=== PATIENT | male | born 1950 | race Caucasian/White ===

== ENCOUNTER 2016-07-17 06:46 | Outpatient (CLI) | payer MEDICARE, OTHER | END 2016-07-17 06:47 | disposition home or self-care (01) | DX: N35.8 Other urethral stricture (principal) ==

== ENCOUNTER 2019-01-08 08:22 | Outpatient (CLI) | payer MEDICARE, OTHER ==
[2019-01-08 12:32] LABS: BASOPHILS % (AUTO) 0.8 %; EOSINOPHILS # (AUTO) 0.1 10^3/uL (0.0-0.7); EOSINOPHILS % (AUTO) 1.7 %; HGB - HEMOGLOBIN 12.2 g/dL (14.0-18.0); LYMPHOCYTES # (AUTO) 0.9 10^3/uL (1.5-3.5); LYMPHOCYTES % (AUTO) 16.8 %; MEAN CORPUSCULAR HEMOGLOBIN 30.9 pg (27.0-31.0); MEAN CORPUSCULAR HGB CONC 33.7 g/dL (32.0-36.0); MEAN CORPUSCULAR VOLUME 91.6 fL (80.0-94.0); MEAN PLATELET VOLUME 10.8 fL (7.4-11.4); MONOCYTES # (AUTO) 0.4 10^3/uL (0.0-1.0); MONOCYTES % (AUTO) 6.7 %; NEUTROPHILS # (AUTO) 3.9 10^3/uL (1.5-6.6); NEUTROPHILS % (AUTO) 73.8 %; PLT - PLATELET COUNT 223 10^3/uL (130-450); RED BLOOD COUNT 3.95 10^6/uL (4.70-6.10); RED CELL DISTRIBUTION WIDTH 12.9 % (12.0-15.0); WHITE BLOOD COUNT 5.2 x10^3/uL (4.8-10.8)
[2019-01-08 12:42] LABS: ALBUMIN 4.3 g/dL (3.2-5.5); ALBUMIN/GLOBULIN RATIO 1.5 (1.0-2.2); BILIRUBIN,TOTAL 0.7 mg/dL (0.2-1.0); CALCIUM 9.4 mg/dL (8.5-10.3); TOTAL PROTEIN 7.2 g/dL (6.7-8.2); TROPONIN I < 0.04 ng/mL (<0.49)
[2019-01-08 12:44] LABS: CREATINE KINASE MB 4.1 ng/mL (0.6-6.3)
== END 2019-01-08 23:59 | disposition home or self-care (01) ==
LOC: LAB.WCP 08:22
PROVIDERS: ATTEND Physician Assistant Medical
DX: R07.9 Chest pain, unspecified (principal)
CPT/HCPCS: 36415; 80053; 82553; 84484; 85025

== ENCOUNTER 2019-01-12 13:22 | Outpatient (CLI) | payer MEDICARE, OTHER ==
--- NOTE | 2019-01-13 08:37 | XRAY Report ---
Reason: CHEST PAIN Procedure Date: 01/12/2019 Accession Number: [id number] / [id number] Procedure: XRN - Chest 2 View X-Ray CPT Code: 88281 FULL RESULT: EXAM: CHEST RADIOGRAPHY EXAM DATE: 01/12/2019 02:11 PM. CLINICAL HISTORY: Upper left chest discomfort and pain for 3 weeks. COMPARISON: None. TECHNIQUE: 2 views. FINDINGS: Lungs/Pleura: No focal opacities evident. No pleural effusion. No pneumothorax. Normal volumes. Mediastinum: Heart and mediastinal contours are unremarkable. Other: None. IMPRESSION: Negative 2-view chest radiography. RADIA
== END 2019-01-12 13:23 | disposition home or self-care (01) ==
LOC: DI.N 13:22
PROVIDERS: ATTEND Physician Assistant Medical
DX: R07.9 Chest pain, unspecified (principal)
CPT/HCPCS: 71046

== ENCOUNTER 2019-05-04 15:03 | Outpatient (CLI) | payer MEDICARE, OTHER ==
--- NOTE | 2019-05-04 16:15 | XRAY Report ---
Reason: SPONDYLOLISTHESIS Procedure Date: 05/04/2019 Accession Number: [id number] / [id number] Procedure: WCP - Lumbar Spine 2 View CPT Code: Final Report FULL RESULT: EXAM: LUMBOSACRAL SPINE RADIOGRAPHY EXAM DATE: 05/04/2019 03:03 PM. CLINICAL HISTORY: Spondylolisthesis. COMPARISONS: LUMBAR SPINE COMPLETE 10/16/2016 2:40 PM. TECHNIQUE: 2 views. FINDINGS: Lateral radiograph is degraded by motion. Alignment: There is apparent anterolisthesis of L5 on S1 by approximately 3 mm, evaluation limited by poor lateral radiograph. There is a mild, approximately 6 degree dextroconvex lumbar scoliosis. Bones: Five [id number] lumbar vertebral bodies are present. No fractures or bone lesions. Disks: Disk space heights are mostly maintained, evaluation limited by lateral radiograph and scoliosis. Facets: There is at least moderate facet arthropathy with suggestion of spondylolysis at L5. Sacroiliac Joints: Unremarkable. Soft Tissues: Normal. The visualized bowel gas pattern is normal. IMPRESSION: Degenerative changes including scoliosis and question of pars defect at L5. RADIA
== END 2019-05-04 23:59 | disposition home or self-care (01) ==
LOC: DI.WCP 15:03
PROVIDERS: ATTEND Nurse Practitioner Family
DX: M47.816 Spondylosis without myelopathy or radiculopathy, lumbar region (principal); M43.17 Spondylolisthesis, lumbosacral region; M41.9 Scoliosis, unspecified
CPT/HCPCS: 72100

== ENCOUNTER 2020-06-02 11:42 | Outpatient (CLI) | payer MEDICARE, OTHER ==
[2020-06-02 12:08] LABS: CREATININE 1.2 mg/dL (0.6-1.2)
[2020-06-02] MEDS ORDERED: IOVERSOL 320 100 ML VIAL IVP ONE ×2 (12:19→13:33)
--- NOTE | 2020-06-02 18:04 | CT Report ---
PROCEDURE: IVP INDICATIONS: MICRO HEMATURIA CONTRAST: IV CONTRAST: Optiray 320 ml: 140 PO CONTRAST: *NO PO CONTRAST TECHNIQUE: After the administration of intravenous contrast, 5 mm thick sections acquired from the diaphragms to the symphysis. 5 mm thick coronal and sagittal reformats were acquired. For radiation dose reducti on, the following was used: automated exposure control, adjustment of mA and/or kV according to ayana ent size. COMPARISON: None. FINDINGS: Image quality: Excellent. Lung bases: Lung bases are clear. Heart size is normal. Urinary system: Both kidneys are normal in size and enhancement. A 3 mm calcification is seen withi n the interpolar right renal cortex posteriorly, which may be related to prior renal insult or a deco mpressed ureteral diverticulum. Subcentimeter cysts are seen in the left kidney. Contrast-filled karen l calyces are normal in morphology. Contrast filled portions of both ureters are normal in caliber. Bladder wall thickness is normal. Solid organs: Liver and spleen are normal in size and enhancement. Gallbladder demonstrates a singl e small calcified gallstone. Biliary system is non dilated. Pancreas enhances normally. No adrenal nodules. Peritoneum and bowel: Bowel loops demonstrate normal wall thickness and caliber. Normal appendix. N o free fluid or air. Nodes and vessels: No retroperitoneal or mesenteric adenopathy by size criteria. Aorta and inferior vena cava are normal in size. Mild atherosclerotic calcifications are seen in the aorta. Abdominal wall: No ventral hernias. Pelvis: No pathologic free pelvic fluid. No inguinal hernias or adenopathy. A 4.5 x 3.8 x 5.0 cm n onspecific abnormal fluid collection is seen in the left scrotum. Bones: No suspicious bony lesions. No vertebral body compression fractures. Degenerative changes a re seen in the included spine. There is grade 1 anterolisthesis of L5 on S1 with bilateral spondyloly sis of L5. IMPRESSION: 1. No suspicious urothelial lesion. No urinary tract calculus. 2. A 3 mm calcification in the interpolar region of the right renal cortex the the secondary to a pr ior renal insult or possibly within a nondilated ureteral diverticulum. 3. Left scrotal nonspecific oval fluid collection measuring up to 5 cm in maximum dimension may repr esent an epididymal cyst or spermatic cord cyst or loculated hydrocele. Reviewed by: Soham Collins MD on 06/02/2020 5:03 PM [facility] Approved by: Soham Collins MD on 06/02/2020 5:03 PM [facility] Station ID: [id number]
== END 2020-06-02 11:43 | disposition home or self-care (01) ==
LOC: DI 11:42
PROVIDERS: ATTEND Urology
DX: R93.421 Abnormal radiologic findings on diagnostic imaging of right kidney (principal); R93.89 Abnormal findings on diagnostic imaging of other specified body structures; R31.29 Other microscopic hematuria
CPT/HCPCS: 36415; 74178; 82565; Q9967

== ENCOUNTER 2022-03-03 10:09 | Emergency (ER) | payer MEDICARE, OTHER ==
--- NOTE | 2022-03-03 11:37 | Ultrasound Report ---
PROCEDURE: Duplex Ext Veins Left INDICATIONS: LLE swelling TECHNIQUE: Real-time imaging, as well as color and pulse Doppler interrogation, were performed of the lower extr emity deep veins from the inguinal ligament to the popliteal fossa. COMPARISON: None. FINDINGS: The deep veins are normally compressible, and free of intraluminal thrombus. Color and pu lse Doppler demonstrate normal phasic intraluminal flow. There is normal augmentation response to di stal compression maneuver. IMPRESSION: No deep venous thrombosis. Reviewed by: Yoly Bernardo MD on 03/03/2022 11:35 AM PDT Approved by: Yoly Bernardo MD on 03/03/2022 11:35 AM PDT Station ID: [id number]
--- NOTE | 2022-03-03 12:16 | ED Physician Documentation ---
History of Present Illness - Stated complaint Stated Complaint: LT LEG SWELLING - Chief complaint Chief Complaint: Ext Problem - Additonal information Additional information: 71-year-old male was brought to the emergency department as a referral from a local walk-in clinic to rule out a DVT. Patient reports that he Has had a petechial rash on his left lower leg now for about 4 days. He has had no fevers congestion. No hematuria or melena. No chest pain, shortness of air. No history of recent cough, cold or congestion. No history of similar. Review of Systems Constitutional: denies: Fever, Chills, Myalgias, Fatigue Eyes: reports: Reviewed and negative Nose: reports: Reviewed and negative Throat: reports: Reviewed and negative Cardiac: reports: Reviewed and negative Respiratory: reports: Reviewed and negative GI: reports: Reviewed and negative : reports: Reviewed and negative Skin: reports: Rash. denies: Lesions, Abrasion (s), Laceration (s) Musculoskeletal: reports: Reviewed and negative Neurologic: reports: Reviewed and negative PD PAST MEDICAL HISTORY - Past Medical History Cardiovascular: None Respiratory: None Endocrine/Autoimmune: None GI: None : None HEENT: None Psych: None Musculoskeletal: None Derm: None - Present Medications Home Medications: Ambulatory Orders Medication Instructions Recorded Confirmed Aspirin [Aspir 81] 81 mg PO DAILY 12/05/12 03/03/22 Multivitamin [Multi-Vitamin Daily] 1 each PO DAILY 12/05/12 03/03/22 Amitriptyline [Elavil] 25 mg PO DAILY 03/03/22 03/03/22 Atorvastatin [Lipitor] 10 mg PO DAILY 03/03/22 03/03/22 amLODIPine [Norvasc] 10 mg PO DAILY 03/03/22 03/03/22 - Allergies Allergies/Adverse Reactions: Allergies Allergy/AdvReac Type Severity Reaction Status Date / Time No Known Drug Allergies Allergy Verified 03/03/22 10:17 PD ED PE NORMAL - General General: Alert and oriented X 3, No acute distress, Well developed/nourished - HEENT HEENT: Atraumatic, Moist mucous membranes, Pharynx benign - Cardiac Cardiac: RRR, No murmur - Respiratory Respiratory: No respiratory distress, Clear bilaterally - Abdomen Abdomen: Normal bowel sounds, Soft, Non tender, Non distended - Derm Derm: Normal color, Warm and dry. No: No rash (Sporadic petechial rash left lower extremity 1 patch just below the knee and another at the level of the sock line above the ankle) - Extremities Extremities: No deformity - Neuro Neuro: Alert and oriented X 3, special effects person 2-12 intact Eye Opening: Spontaneous Motor: Obeys Commands Verbal: Oriented GCS Score: 15 - Psych Psych: Normal mood Results - Vitals Vitals: Vital Signs - 24 hr 03/03/22 10:15 Temperature 36.1 C L Heart Rate 59 L Respiratory 16 Rate Blood Pressure 147/66 H O2 Saturation 100 Oxygen O2 Source Room air - Labs Labs: Laboratory Tests 03/03/22 03/03/22 03/03/22 12:17 12:17 12:17 WBC 6.0 RBC 4.25 L Hgb 12.8 L Hct 37.8 L MCV 88.9 MCH 30.1 MCHC 33.9 RDW 13.2 Plt Count 254 MPV 9.5 Neut # (Auto) 4.6 Lymph # (Auto) 0.9 L Bond # (Auto) 0.4 Eos # (Auto) 0.0 Baso # (Auto) 0.0 Absolute Nucleated RBC 0.00 Nucleated RBC % 0.0 ESR 10 Sodium 135 Potassium 3.9 Chloride 98 L Carbon Dioxide 29 Anion Gap 8.0 BUN 22 H Creatinine 1.0 Estimated GFR (MDRD) 74 L Glucose 102 H Calcium 9.5 Total Bilirubin 0.9 AST 25 ALT 23 Alkaline Phosphatase 82 C-Reactive Protein < 1.0 Total Protein 7.4 Albumin 4.8 Globulin 2.6 Albumin/Globulin Ratio 1.8 Lipase 35 Urine Color Urine Clarity Urine pH Ur Specific [place] Urine Protein Urine Glucose (UA) Urine Ketones Urine Occult Blood Urine Nitrite Urine Bilirubin Urine Urobilinogen Ur Leukocyte Esterase Urine RBC Urine WBC Ur Squamous Epith Cells Urine Bacteria Ur Microscopic Review Urine Culture Comments 03/03/22 12:20 WBC RBC Hgb Hct MCV MCH MCHC RDW Plt Count MPV Neut # (Auto) Lymph # (Auto) Bond # (Auto) Eos # (Auto) Baso # (Auto) Absolute Nucleated RBC Nucleated RBC % ESR Sodium Potassium Chloride Carbon Dioxide Anion Gap BUN Creatinine Estimated GFR (MDRD) Glucose Calcium Total Bilirubin AST ALT Alkaline Phosphatase C-Reactive Protein Total Protein Albumin Globulin Albumin/Globulin Ratio Lipase Urine Color LT. YELLOW Urine Clarity CLEAR Urine pH 7.0 Ur Specific [place] 1.010 Urine Protein NEGATIVE Urine Glucose (UA) NEGATIVE Urine Ketones NEGATIVE Urine Occult Blood SMALL H Urine Nitrite NEGATIVE Urine Bilirubin NEGATIVE Urine Urobilinogen 0.2 (NORMAL) Ur Leukocyte Esterase NEGATIVE Urine RBC 0-5 Urine WBC 0-3 Ur Squamous Epith Cells NONE SEEN Urine Bacteria None Seen Ur Microscopic Review INDICATED Urine Culture Comments NOT INDICATED - Rads (name of study) left leg US Radiology: Final report received (No findings for deep vein thrombosis) PD MEDICAL DECISION MAKING - ED course Complexity details: reviewed results, re-evaluated patient, considered differential, d/w patient ED course: Well-appearing 71-year-old male presents emergency department for evaluation of a faint petechial rash on his anterior left lower leg. It is patchy and began about 3 days ago. He went to a local walk-in clinic and he was advised to come to the ER to rule out a DVT. Initial ultrasound imaging does not show findings of deep vein thrombosis. However the petechial rash raises my concern for the possibility of a faint vasculitis. I did obtain a CBC, sed rate and screening chemistry that revealed no acute worrisome findings. In the absence of thrombocytopenia and elevated sed rate and CRP at this time we will defer steroids. I am making the recommendation for the patient to follow-up closely with his primary care provider. Emergent return precautions were discussed for failure of symptoms to resolve Departure - Departure Disposition: 01 Home, Self Care Clinical Impression: Petechial rash Condition: Stable Record reviewed to determine appropriate education?: Yes Comments: Rory grider are seen today in the emergency department for a petechial rash and mild left leg swelling. The ultrasound does not show anything to suggest a deep vein thrombosis. Sometimes a petechial rash such as yours can be a sign of vasculitis or abnormal blood or platelet counts. We did obtain a screening blood count, electrolytes, sedimentation rate and CRP today. These were all essentially normal. The cause of your petechial rash is not clear at this time. I do recommend you have very close follow-up with your primary care provider. If at any point you find that you have worsening or extension of the rash, unexplained bruising or bleeding, develop any sudden severe headache, chest pain or shortness of air you should return immediately to the ER for a second evaluation.
[2022-03-03 12:22] LABS: BASOPHILS % (AUTO) 0.5 %; EOSINOPHILS % (AUTO) 0.5 %; HCT - HEMATOCRIT 37.8 % (42.0-52.0); HGB - HEMOGLOBIN 12.8 g/dL (14.0-18.0); LYMPHOCYTES # (AUTO) 0.9 10^3/uL (1.5-3.5); LYMPHOCYTES % (AUTO) 15.6 %; MEAN CORPUSCULAR HEMOGLOBIN 30.1 pg (27.0-31.0); MEAN CORPUSCULAR HGB CONC 33.9 g/dL (32.0-36.0); MEAN CORPUSCULAR VOLUME 88.9 fL (80.0-94.0); MEAN PLATELET VOLUME 9.5 fL (7.4-11.4); MONOCYTES # (AUTO) 0.4 10^3/uL (0.0-1.0); NEUTROPHILS # (AUTO) 4.6 10^3/uL (1.5-6.6); NEUTROPHILS % (AUTO) 76.9 %; PLT - PLATELET COUNT 254 10^3/uL (130-450); RED BLOOD COUNT 4.25 10^6/uL (4.70-6.10); RED CELL DISTRIBUTION WIDTH 13.2 % (12.0-15.0)
[2022-03-03 12:27] LABS: BILIRUBIN,URINE NEGATIVE (NEGATIVE); CLARITY,URINE CLEAR (CLEAR); GLUCOSE, URINE (UA) NEGATIVE (NEGATIVE); KETONES,URINE (UA) NEGATIVE (NEGATIVE); LEUKOCYTE ESTERASE, URINE NEGATIVE (NEGATIVE); NITRITE,URINE NEGATIVE (NEGATIVE); OCCULT BLOOD,URINE SMALL (NEGATIVE); PROTEIN,URINE NEGATIVE (NEGATIVE); UROBILINOGEN,URINE 0.2 (NORMAL) E.U./dL (NORMAL)
[2022-03-03 12:32] LABS: BACTERIA,URINE None Seen /HPF (None Seen); RBC,URINE 0-5 /HPF (0-5); SQUAMOUS EPITHELIAL CELL,UR NONE SEEN (<= Few); WBC,URINE 0-3 /HPF (0-3)
[2022-03-03 12:40] LABS: ALBUMIN 4.8 g/dL (3.2-5.5); ALBUMIN/GLOBULIN RATIO 1.8 (1.0-2.2); ALKALINE PHOSPHATASE 82 IU/L (42-121); ALT ALANINE AMINOTRANSFERASE 23 IU/L (10-60); AST ASPARTATE AMINOTRANSFERASE 25 IU/L (10-42); BILIRUBIN,TOTAL 0.9 mg/dL (0.2-1.0); BUN - BLOOD UREA NITROGEN 22 mg/dL (6-20); CALCIUM 9.5 mg/dL (8.5-10.3); CARBON DIOXIDE - CO2 29 mmol/L (21-32); CHLORIDE 98 mmol/L (101-111); CRP - C-REACTIVE PROTEIN < 1.0 mg/dL (0-1.0); GFR - MDRD 74 (>89); GLUCOSE 102 mg/dL (70-100); LIPASE 35 U/L (22-51); POTASSIUM 3.9 mmol/L (3.5-5.0); SODIUM 135 mmol/L (135-145); TOTAL PROTEIN 7.4 g/dL (6.7-8.2)
[2022-03-03 13:18] VITALS: BP 135/86
== END 2022-03-03 13:18 | disposition home or self-care (01) ==
LOC: ED 10:09
DX: R21 Rash and other nonspecific skin eruption (principal)
CPT/HCPCS: 36415; 80053; 81001; 81003; 83690; 85025; 85651; 86140; 87086; 99282; 99284

== ENCOUNTER 2022-04-16 10:00 | Outpatient (CLI) | payer MEDICARE, OTHER ==
--- NOTE | 2022-04-16 16:24 | XRAY Report ---
PROCEDURE: Hip w/Pelvis 2-3V LT INDICATIONS: LOW BACK PAIN, HIP JOINT PAIN LEFT TECHNIQUE: AP pelvis with lateral view of the left hip. COMPARISON: None. FINDINGS: Bones: No acute fractures or dislocations. Pelvic ring appears intact. No suspicious bony lesions. Degenerative changes are seen in the lower lumbar spine. There is mild partial thickness or space n arrowing in the hips bilaterally. Soft tissues: The visualized bowel gas pattern is normal. No suspicious soft tissue calcifications. IMPRESSION: 1.Mild bilateral hip osteoarthrosis. 2.Degenerative changes are seen in the included lumbar spine. Reviewed by: Soham Collins MD on 04/16/2022 4:23 PM PDT Approved by: Soham Collins MD on 04/16/2022 4:23 PM PDT Station ID: [id number]
== END 2022-04-16 10:01 | disposition home or self-care (01) ==
LOC: DI.N 10:00 → DI 10:01
PROVIDERS: ATTEND Nurse Practitioner
DX: M16.0 Bilateral primary osteoarthritis of hip (principal); M47.816 Spondylosis without myelopathy or radiculopathy, lumbar region

== ENCOUNTER 2024-03-06 11:19 | Day surgery (SDC) | payer MEDICARE, OTHER ==
[2024-03-06] MEDS: LACTATED RINGERS 1,000 ML IV ONE ×2 (11:29→14:10)
[2024-03-06] MEDS ORDERED: PROPOFOL 500 MG/50 ML 500 MG/50 ML VIAL ONE (12:35)
[2024-03-06] MEDS ORDERED: LIDOCAINE-MPF 2% 5 ML VIAL ONE (12:35)
--- NOTE | 2024-03-06 12:48 | ANESTHESIA ---
Pre-Anesthesia VS, & Labs - Diagnosis screening - Procedure colonoscopy Vital Signs: Temp Pulse Resp BP Pulse Ox O2 Flow Rate 36.2 C L 65 15 144/81 H 100 03/06/24 11:31 03/06/24 11:31 03/06/24 11:31 03/06/24 11:31 03/06/24 11:31 Height: 6 ft 2 in Weight (kg): 74.3 kg Body Mass Index: 21.0 BMI Classification: Normal - NPO Other (prep as directed) Home Medications and Allergies Home Medications: Ambulatory Orders Glucosamine HCl 03/06/24 Multivitamin [Multi-Vitamin Daily] 1 each PO DAILY 12/05/12 Amitriptyline [Elavil] 25 mg PO DAILY 03/03/22 Atorvastatin [Lipitor] 10 mg PO DAILY 03/03/22 amLODIPine [Norvasc] 10 mg PO DAILY 03/03/22 Glucosamine HCl 03/06/24 Allergies/Adverse Reactions: Allergies Allergy/AdvReac Type Severity Reaction Status Date / Time No Known Drug Allergies Allergy Verified 03/06/24 11:43 Anes History & Medical History - Anesthetic History Anesthesia Complications: reports: No previous complications - Medical History Cardiovascular: reports: None Pulmonary: reports: None Gastrointestinal: reports: None Urinary: reports: None Musculoskeletal: reports: None Endocrine/Autoimmune: reports: None Skin: reports: None - Surgical History Urologic: reports: Prostatic surgery Exam General: Alert, Oriented x3 Dental: WNL Mouth Opening: Greater than 4 Fingerbreadths Neck Mobility: Normal Mallampati classification: II Thyromental Distance: greater than 6 cm Respiratory: Lungs clear Cardiovascular: Regular rate Plan Anesthesia Type: IV Regional Consent for Procedure(s) Verified and Reviewed: Yes Code Status: Attempt Resuscitation ASA classification: 2-Mild systemic disease Is this case an emergency?: No
[2024-03-06] MEDS ORDERED: PROPOFOL 200 MG/20 ML VIAL IVP ONE (14:08)
[2024-03-06 14:52] VITALS: BP 145/81; O2SAT 100
--- NOTE | 2024-03-06 17:08 | ANESTHESIA POST OP EVALUATION ---
Anesthesia Post Eval - Post Anesthesia Eval Vitals: Last Vital Signs Temp 36 C L 03/06/24 14:45 Pulse 60 03/06/24 14:45 Resp 16 03/06/24 14:45 BP 145/81 H 03/06/24 14:45 Pulse Ox 100 03/06/24 14:45 O2 Flow Rate CV Function Including HR & BP: Stable Pain Control: Satisfactory Nausea & Vomiting: Negative Mental Status: Baseline Respiratory Status: Airway Patent Hydration Status: Satisfactory Anesthesia Complications: None
== END 2024-03-06 11:20 | disposition home or self-care (01) ==
LOC: SDS 11:19
PROVIDERS: ATTEND Surgery
PROC: 0DBK8ZZ Excision of Ascending Colon, Via Natural or Artificial Opening Endoscopic (ICD-10-PCS; principal; 2024-03-06 13:00)
DX: Z12.11 Encounter for screening for malignant neoplasm of colon (principal); D12.2 Benign neoplasm of ascending colon
CPT/HCPCS: 45380; J7120